=== PATIENT | male | born 1995 | race Caucasian/White ===

== ENCOUNTER 2019-12-02 04:12 | Emergency (ER) | payer MEDICAID ==
[~2019-12-02] VITALS: Ht 175.3 cm; Wt 85.3 kg
--- NOTE | 2019-12-02 04:18 | NUR ---
PT AMBULATED TO RESTROOM. STEADY GAIT.
[2019-12-02 04:23] VITALS: BP 162/71
--- NOTE | 2019-12-02 04:28 | NUR ---
PT AMBULATED TO BED 7 WITH STEADY GAIT.
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
--- NOTE | 2019-12-02 04:35 | NUR ---
ERMD AT BEDSIDE EXAMINING PT.
[2019-12-02] MEDS ORDERED: LIDOCAINE/EPI 1% 1:100000 20 ML VIAL INJ ONE (04:40)
--- NOTE | 2019-12-02 04:41 | NUR ---
PT TAKEN TO XRAY VIA WHEELCHAIR.
--- NOTE | 2019-12-02 04:50 | NUR ---
LIDOCAINE 10ML ADMINISTERED BY ERMD FOR BEDSIDE PROCEDURE.
[2019-12-02] MEDS ORDERED: BACITRACIN OINT 500 UNITS/GM PKT TP ONE (04:56)
[2019-12-02 05:14] VITALS: BP 162/71
--- NOTE | 2019-12-02 05:14 | NUR ---
Patient discharged with v/s stable. Written and verbal after care instructions given and explained. Patient alert, oriented and verbalized understanding of instructions. Ambulatory with steady gait. All questions addressed prior to discharge. ID band removed. Patient advised to follow up with PMD. Opportunity to ask questions provided and answered.
== END 2019-12-02 05:14 | disposition home or self-care (01) ==
LOC: MED 04:12
DX: S61.216A Laceration without foreign body of right little finger without damage to nail, initial encounter (principal); W45.8XXA Other foreign body or object entering through skin, initial encounter; Y93.89 Activity, other specified; Y92.89 Other specified places as the place of occurrence of the external cause; Y99.8 Other external cause status
CPT/HCPCS: 12001; 73130; 99283; J2001